=== PATIENT | male | born 1930 | race Caucasian/White ===

== ENCOUNTER → 2017-10-21 | Outpatient (CLI) | payer MEDICARE, BC ==
--- NOTE | 2017-10-21 15:51 | XR ---
EXAMINATION TYPE: XR chest 2V DATE OF EXAM: 10/21/2017 COMPARISON: NONE INDICATION: MRI clearance TECHNIQUE: Frontal and lateral views of the chest are obtained. FINDINGS: The heart size is normal. The pulmonary vasculature is normal. The lungs are clear. Hiatal hernia is present No pericardial leads are identified. Sternotomy wires are present. IMPRESSION: 1. No acute pulmonary process. 2. Hiatal hernia. 3. No abnormality to contraindicate MRI within the [id number].
== END | disposition home or self-care (01) ==
LOC: RADXRMAIN 15:26
PROVIDERS: ATTEND Physical Medicine & Rehabilitation
DX: Z01.818 Encounter for other preprocedural examination (principal); K44.9 Diaphragmatic hernia without obstruction or gangrene; M47.817 Spondylosis without myelopathy or radiculopathy, lumbosacral region; M54.16 Radiculopathy, lumbar region; M41.26 Other idiopathic scoliosis, lumbar region; Z86.79 Personal history of other diseases of the circulatory system
CPT/HCPCS: 71046

== ENCOUNTER 2019-08-26 18:50 | Emergency (ER) | payer MEDICARE, BC ==
[2019-08-26 18:57] VITALS: BP 162/92; PULSE 69; RESP 18; TEMP 98
[2019-08-26] MEDS ORDERED: GABAPENTIN 300 MG CAP PO STA (19:33)
--- NOTE | 2019-08-26 19:33 | ED ---
Recheck HPI - General Chief Complaint: Recheck/Abnormal Lab/Rx Stated Complaint: med refill Time Seen by Provider: 08/26/19 18:58 Source: patient Mode of arrival: ambulatory Limitations: no limitations - History of Present Illness Initial Comments: Abnormality history of peripheral neuropathy and anxiety presented emergency department for chief complaint of medication refill. Patient states he is out of his gabapentin. He was told by a pharmacist that he may have reaction from sudden cessation of taking this medication. Patient states that this caused him to have anxiety and he wants a medication refill. Patient states he does of the same burning pain in his bilateral lower extremities that is chronic. Denies any new changes. Patient states he does not have a refill for another 10 days an appointment next week for his primary care provider. Patient is no other complaints states he has no new symptoms. Denies chest pain shortness of br eath. Remaining review of systems negative upon arrival patient appears well no signs of acute distress - Related Data Home Medications Medication Instructions Recorded Confirmed Atorvastatin [Lipitor] 40 mg PO HS 01/07/16 08/26/19 Gabapentin 600 mg PO TID@0800,1200,1800 01/07/16 08/26/19 LORazepam [Ativan] 1 mg PO HS 01/07/16 08/26/19 Metoprolol Tartrate [Lopressor] 25 mg PO DAILY 01/07/16 08/26/19 Multivit-Min/FA/Lycopen/Lutein 1 tab PO DAILY@1200 01/07/16 08/26/19 [Centrum Silver Tablet] [place]-3 Fatty Acids/Fish Oil [Fish 1 cap PO DAILY@1200 01/07/16 08/26/19 Oil 1,000 mg Softgel] Omeprazole [PriLOSEC] 20 mg PO HS 01/07/16 08/26/19 Tamsulosin HCl [Flomax] 0.4 mg PO HS 01/07/16 08/26/19 Ubidecarenone [Co Q-10] 100 mg PO DAILY@1200 01/07/16 08/26/19 Aspirin EC [Ecotrin] 325 mg PO HS 08/26/19 08/26/19 Previous Rx's Medication Instructions Recorded Nitroglycerin Sl Tabs [Nitrostat] 0.4 mg SUBLINGUAL Q5M PRN #0 tab 01/08/16 Gabapentin 600 mg PO TID 10 Days #30 tab 08/26/19 Allergies Allergy/AdvReac Type Severity Reaction Status Date / Time tetracycline HCl Allergy FEVER AND Verified 08/26/19 19:48 [From Sumycin] UPSET STOMACH amitriptyline AdvReac HEARTBURN Verified 08/26/19 19:48 Review of Systems ROS Statement: Those systems with pertinent positive or pertinent negative responses have been documented in the HPI. ROS Other: All systems not noted in ROS Statement are negative. 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-took skin from lt hand to use for grafting, colonoscopy/polypectomy(benign), minoo inguinal hernia repair,hemorrhidectomy, rt carpal tunnel release, trigger fingger sx(thumb-not sure which finger), minoo cataracts-lens implants Past Anesthesia/Blood Transfusion Reactions: No Reported Reaction Past Psychological History: Panic Disorder Smoking Status: Never smoker Past Alcohol Use History: None Reported Past Drug Use History: None Reported - Past Family History Father Family Medical History: Myocardial Infarction ([place]) Additional Family Medical History / Comment(s): age 72 Mother Family Medical History: Cancer, Dementia Additional Family Medical History / Comment(s): uterine cancer in her 50's. at age 98 1/2 in [facility]-had dementia later on. General Exam - General Exam Comments Initial Comments: General: The patient is awake and alert, in no distress, and does not appear acutely ill. Eye: Pupils are equal, round and reactive to light, extra-ocular movements are intact. No nystagmus. There is normal conjunctiva bilaterally. No signs of icterus. Ears, nose, mouth and throat: There are moist mucous membranes and no oral lesions. Neck: The neck is supple, there is no tenderness or JVD. Cardiovascular: There is a regular rate and rhythm. No murmur, rub or gallop is appreciated. Respiratory: Lungs are clear to auscultation, respirations are non-labored, breath sounds are equal. No wheezes, stridor, rales, or rhonchi. Gastrointestinal: Musculoskeletal: Normal ROM, no tenderness. Strength 5/5. Sensation intact. Posterior tibial pulses equal bilaterally 2+. No lower extremity edema Neurological: A&O x 3. CN II-XII intact grossly, There are no obvious motor or sensory deficits. Coordination appears grossly intact. Speech is normal. Skin: Skin is warm and dry and no rashes or lesions are noted. Psychiatric: Cooperative, appropriate mood & affect, normal judgment. Limitations: no limitations Course Vital Signs 08/26/19 18:52 Temperature 98 F Pulse Rate 69 Respiratory 18 Rate Blood Pressure 162/92 O2 Sat by Pulse 97 Oximetry Medical Decision Making - Medical Decision Making 89yo male presenting for medication refill. No new complaints. Patient appears well. Patient is concerned he possibly would have a reaction by stopping the medication. I prescribed a 10 days course. Patient was given 1 single dose in ER. Discussed case with Dr. Nieto patient discharged appearing well. Disposition Clinical Impression: Medication refill, Peripheral neuropathy Disposition: HOME SELF-CARE Condition: Good Instructions (If sedation given, give patient instructions): Medicine Refill (ED) Additional Instructions: Please use medication as discussed. Please follow-up with family doctor in the next 2 days.. Please return to emergency room if the symptoms increase or worsen or for any other concerns. Prescriptions: Gabapentin 600 mg PO TID 10 Days #30 tab Is patient prescribed a controlled substance at d/c from ED?: No Referrals: [facility],Clinic [Primary Care Provider] - 1-2 days Time of Disposition: 19:40
== END 2019-08-26 20:01 | disposition home or self-care (01) ==
LOC: EC 18:50
DX: G62.9 Polyneuropathy, unspecified (principal); Z76.0 Encounter for issue of repeat prescription; I25.10 Atherosclerotic heart disease of native coronary artery without angina pectoris; K21.9 Gastro-esophageal reflux disease without esophagitis; E78.5 Hyperlipidemia, unspecified; I10 Essential (primary) hypertension; M19.90 Unspecified osteoarthritis, unspecified site; N40.0 Benign prostatic hyperplasia without lower urinary tract symptoms; F41.0 Panic disorder [episodic paroxysmal anxiety]; G25.81 Restless legs syndrome; Z79.82 Long term (current) use of aspirin; Z79.899 Other long term (current) drug therapy; Z88.1 Allergy status to other antibiotic agents; Z88.8 Allergy status to other drugs, medicaments and biological substances; Z95.1 Presence of aortocoronary bypass graft
CPT/HCPCS: 99281

== ENCOUNTER → 2020-05-29 | Outpatient (CLI) | payer MEDICARE, BC ==
--- NOTE | 2020-05-29 11:32 | US ---
EXAMINATION TYPE: US gallbladder DATE OF EXAM: 05/29/2020 COMPARISON: NONE CLINICAL HISTORY: 89-year-old male R10.11 RUQ ABD PAIN. Abd pain x 1 week ago with n/v after eating TECHNIQUE: Multiple sonographic images of the right upper quadrant are obtained. FINDINGS: EXAM MEASUREMENTS: Liver Length: 17.8 cm Gallbladder Wall: 0.6 cm CBD: 0.4 cm Right Kidney: 10.5 x 4.9 x 6.2 cm Pancreas: Obscured by bowel gas Liver: Borderline in size. Slightly echogenic periportal fat. No focal lesion seen. Gallbladder: Thickened wall. Sludge visualized with mobile echogenic foci. Mildly hydropic. Evidence for sonographic Porras's sign: neg CBD: wnl Right Kidney: No hydronephrosis. IMPRESSION: 1. Liver demonstrating slightly echogenic periportal fat which may be on a technical basis. Further c linical correlation recommended as the finding can also be seen in the setting of hepatitis. 2. Gallbladder wall thickening, hydropic change, and sludge and gravel. As the sonographic Porras sig n is reported absent, further clinical correlation recommended to assess for acute or chronic cholecy stitis. 3. No biliary ductal dilatation.
== END | disposition home or self-care (01) ==
LOC: RADUSWWP 10:44
PROVIDERS: ATTEND Internal Medicine
DX: K82.8 Other specified diseases of gallbladder (principal)
CPT/HCPCS: 76705